=== PATIENT | male | born 1965 | race Caucasian/White ===

== ENCOUNTER 2018-07-21 01:30 | Observation (INO) | payer BC ==
[2018-07-21] VITALS (8 sets, daily range): BP systolic 143–178; BP diastolic 74–89; Ht 182.9 cm; Wt 122.7 kg
[~2018-07-21] VITALS: Ht 182.9 cm; Wt 122.7 kg
--- NOTE | ~2018-07-21 | HEMODYNAMI ---
PATIENT:BHASKAR RIZZO MEDICAL RECORD: [id number] : 65 LOCATION:[facility]# [id number] ADMISSION DATE: 07/21/18 Generatedon:07/21/201812:27 Patient name: BHASKAR RIZZO Patient #: [id number] SSN: : 1965 Date of study: 07/21/2018 Page: Of Hemodynamic Procedure Report Patient Data Patient Demographics Procedure consent was obtained First Name: BHASKAR Gender: Male Last Name: SO : 1965 Patient #: [id number] Age: 52 year(s) Race: Unknown Additional ID: [id number] Contact details [address]: [address] [place] [address] State: [place] City: [place] Zip code: [address] Past Medical History Allergies Allergen Reaction Date Comments Reported Codeine 07/21/2018 Admission Admission Data Admission Date: 07/21/2018 Admission Time: 3:20 Room #: [facility] Height (in.): 72 BSA: 2.42 (m2) Height (cm.): 182.88 BMI: 36.62 (kg/m2) Weight (lbs.): 270 Weight (kg.): 122.47 Lab Results Lab Result Date: 07/21/2018 Lab Result Time: 0:00 Biochemistry Name Units Result Min Max BUN mg/dl 24 --(----)-* 7 18 Creatinine mg/dl 1.3 --(---*)-- 0.6 1.3 CBC Name Units Result Min Max Hematocrit % 40.1 -*(----)-- 42 54 Hemoglobin g/dl 14.3 --(*---)-- 13.5 17.5 Procedure Procedure Types Cath Procedure Diagnostic Procedure [facility] w/Coronaries Sedation Charges Moderate Sedation up to 15 minutes PCI Procedure Coronary Stent Coronary Stent Initial Procedure Description Procedure Date Procedure Date: 07/21/2018 Procedure Start Time: 11:57 Procedure End Time: 12:23 Procedure Staff Name Function Ceferino Crouch MD Performing Physician Cassidy Sotelo RT Monitor Colleen John RT Scrub Kamilla Araujo RN Nurse Clarence Duke RN Production Welding Supervisor Procedure Data Cath Procedure Fluoroscopy Diagnostic fluoroscopy Total fluoroscopy Time: 5.9 time: 5.9 min min Diagnostic fluoroscopy Total fluoroscopy dose: dose: 1674 mGy 1674 mGy Contrast Material Contrast Material Type Amount (ml) Isovue 300 137 Entry Location Entry Primary Successful Side Size Upsize Upsize Entry Closure Succes sful Closure Location (Fr) 1 (Fr) 2 (Fr) Remarks Device Remarks Femoral Right 5 Fr 6 Fr Exoseal artery Short Estimated blood loss: 5 ml Diagnostic catheters Device Type Used For End Catheter Placement MULTIPACK JL 4.0 5Fr Left Coronary catheter Angiography MULTIPACK 3DRC 5Fr Multi-vessel catheter Angiography MULTIPACK Pigtail 5 Fr LV Angiography catheter MULTIPACK 3DRC 5Fr Multi-vessel catheter Angiography Procedure Complications No complications Procedure Medications Medication Administration Route Dosage Versed I.V. 2 mg Fentanyl I.V. 50 mcg 0.9% NaCl I.V. 100 ml/hr Oxygen etCO2 Nasal cannula 2 l/min Lidocaine 2% added to field 20 Heparin Flush Bag added to field 2 bags (1000units/500ml NS) Heparin Bolus I.V. 74773 units Versed I.V. 2 mg Fentanyl I.V. 50 mcg Plavix P.O. 600 mg Hemodynamics Rest BSA: 2.42 (m2) HGB: 14.3 (g/dl) O2 Consumption: Estimated: 278 (ml/min) O2 Consu mption indexed: Estimated:114.88 (ml/min/m) Heart Rate: 59 (bpm) Pressure Samples Time Site Value (mmHg) Purpose Heart Use Rate(bpm) 12:03 LV 159/0,48 Snapshot 53 Snapshots Pre Cath Intra NCS Post Cath Vital Signs Time Heart Resp SPO2 etCO2 NIBP (mmHg) Rhythm Pain Sedation Rate (ipm) (%) (mmHg) Status Level (bpm) 11:46:29 54 15 99 36.5 183/90(149) SB 0 (11) 10(A) , No pain 11:50:59 50 10 99 36 166/79(151) SB 0 (11) 10(A) , No pain 11:55:35 52 12 97 36 157/91(124) SB 0 (11) 9(A) , No pain 12:00:02 51 10 98 30 154/78(140) SB 0 (11) 9(A) , No pain 12:04:30 58 11 98 25.3 163/94(130) SB 0 (11) 9(A) , No pain 12:09:00 56 11 99 40 159/83(131) SB 0 (11) 10(A) , No pain 12:13:37 61 11 99 43.4 167/76(132) SB 0 (11) 9(A) , No pain 12:18:15 57 10 98 44 140/85(132) SB 0 (11) 10(A) , No pain 12:22:46 63 9 98 16.4 155/83(130) SB 0 (11) 10(A) , No pain Medications Time Medication Route Dose Verified Delivered Reason Notes Effectiveness by by 11:51:24 Versed I.V. 2 mg Ceferino Kamilla for sedation Miko Araujo RN 11:51:54 Fentanyl I.V. 50 Ceferino Kamilla for sedation mcg Miko Araujo RN 11:54:16 0.9% NaCl I.V. 100 Ceferino Kamilla used for ml/hr Miko Araujo efficiency analyst 11:54:24 Oxygen etCO2 2 Ceferino Kamilla used for Nasal l/min Miko Araujo procedure cannula RN 11:54:33 Lidocaine 2% added 20ml Ceferino Ceferino for local to vial Miko Crouch MD anesthetic field 11:54:40 Heparin Flush added 2 Ceferino Ceferino used for Bag to bags Miko Crouch MD procedure (1000units/500ml field NS) 12:10:36 Versed I.V. 2 mg Ceferino Kamilla for sedation verif ied Miko Araujo with Dr. AMARA Crouch 12:10:44 Fentanyl I.V. 50 Ceferino Kamilla for sedation mcg Miko Araujo RN 12:12:19 Heparin Bolus I.V. 86834 Ceferino Kamilla for units Miko Araujo anticoagulation RN 12:22:08 Plavix P.O. 600 Ceferino Kamilla for mg Miko Araujo antiplatelet RN therapy Procedure Log Time Note 10:34:56 Signed procedure consent form obtained from patient. 10:34:58 Diagnostic Cath status Elective 10:34:59 Time tracking: Regular hours (M-F 7:00 - 5:00) 10:35:04 Plan of Care:Hemodynamics will remain stable., Cardiac rhythm will remain stable., Comfort level will be maintained., Respiratory function will remain adequate., Patient/ family verbilizes understanding of procedure., Procedure tolerated without complication., Recovers from procedure without complications.. 10:36:30 H&P Date Dictated: 07/21/2018 ER History on chart.. 10:36:51 Patient allergic to Codeine 10:37:58 Lab Result : BUN 24 mg/dl 10:37:58 Lab Result : Creatinine 1.3 mg/dl 10:37:58 Lab Result : Hematocrit 40.1 % 10:37:58 Lab Result : Hemoglobin 14.3 g/dl 10:53:37 Patient Height : 72 inches 10:53:46 Patient Weight : 270 lbs 11:31:34 Clarence Duke RN sent for patient. Start room use. 11:40:29 Patient received from ED to CCL 1 Alert and oriented. Tansferred to table in Supine position. 11:40:31 Warm blankets applied, and radha hugger turned on for patient comfort. 11:40:31 Correct patient and procedure confirmed by team. 11:40:32 ECG and BP/O2 sat monitors applied to patient. 11:45:00 Vital chart was started 11:48:45 Baseline sample Acquired. 11:48:48 Rhythm: sinus rhythm 11:48:50 Full Disclosure recording started 11:48:50 Pre-procedure instructions explained to patient. 11:48:51 Pre-op teaching completed and patient verbalized understanding. 11:48:52 Family in waiting room. 11:48:53 Patient NPO since Midnight. 11:48:55 Is the patient allergic to Iodine/contrast media? No. 11:48:56 Was the patient premedicated? No 11:48:57 Is patient on blood thinner?No 11:48:59 Patient diabetic? Yes. 11:49:01 If diabetic: On Metformin? Yes 11:49:04 If on Metformin: Last Dose? 07/20/2018 11:49:09 Previous problem with sedation/anesthesia? No ? 11:49:12 Snore? Yes 11:49:14 Sleep apnea? No 11:49:14 Deviated septum? No 11:49:28 Opens mouth fully? Yes 11:49:29 Sticks out tongue? Yes 11:49:38 Airway obstruction? No ? 11:49:42 Dentures? No ? 11:49:46 Pre procedure: right dorsailis pedis pulse 2+ Normal; easily identifiable; not easily obliterated 11:49:48 Pre procedure: left dorsailis pedis pulse 2+ Normal; easily identifiable; not easily obliterated 11:49:52 Patient pain scale 0/10 ?. 11:49:58 IV patent on arrival in left forearm with 0.9% NaCl at O. 11:50:00 Lab results completed and on chart. 11:50:05 Right groin area was prepped with chlora-prep and draped in sterile fashion 11:50:06 Alarms reviewed by R. N. 11:50:06 Sharps counted by scrub and verified by R.N. 11:50:08 Physician arrived 11:50:09 --------ALL STOP TIME OUT------ 11:50:10 Final Timeout: patient, procedure, and site verified with staff and physician. All members of the team are in agreement. 11:50:12 Right groin site verified by team. 11:50:16 Maximum allowable Isovue 300 dose 300ml. Physician notified. (300ml for normal creatinines. For patients with creatinine of 1.7 or higher multiply weight(kg) x 5 divided by creatinine.) 11:50:21 Fire Safety Assessment: A--An alcohol-based skin anteseptic being used preoperatively., C--Open oxygen or nitrous oxide is being used., D--An ESU, laser, or fiber-optic light is being used. 11:50:24 Physical assessment completed. ASA score P 2 - A patient with mild systemic disease as per Ceferino Crouch MD. 11:50:30 Sedation plan: IV Moderate Sedation Medication:Versed, Fentanyl 11:50:33 Use device set Femoral Dx 11:50:35 ACIST Syringe (09188) opened to sterile field. 11:50:35 Bag Decanter (2002S) opened to sterile field. 11:50:35 Medline Cath Pack ([id number]) opened to sterile field. 11:50:36 DIAGNOSTIC WIRE .035 260cm J wire (774693) opened to sterile field. 11:50:37 ACIST Hand Control (78455) opened to sterile field. 11:50:38 ACIST Manifold (99072) opened to sterile field. 11:50:38 DIAGNOSTIC Multipack 5Fr catheter set (MP3687) opened to sterile field. 11:50:39 Tegaderm 4 x 4 (1626W) opened to sterile field. 11:50:41 SHEATH 5FR Spraggs (ZYV687) opened to sterile field. 11:51:24 Versed 2 mg I.V. was administered by Kamilla Araujo RN; for sedation; 11:51:54 Fentanyl 50 mcg I.V. was administered by Kamilla Araujo RN; for sedation; 11:54:16 0.9% NaCl 100 ml/hr I.V. was administered by Kamilla Araujo RN; used for procedure; 11:54:24 Oxygen 2 l/min etCO2 Nasal cannula was administered by Kamilla Araujo RN; used for procedure; 11:54:33 Lidocaine 2% 20ml vial added to field was administered by Ceferino Crouch MD; for local anesthetic; 11:54:40 Heparin Flush Bag (1000units/500ml NS) 2 bags added to field was administered by Ceferino Crouch MD; used for procedure; 11:56:40 Zero performed for pressure channel P1 11:56:50 Procedure started. 11:57:06 Local anesthetic to right femoral artery with Lidocaine 2% by Ceferino Crouch MD.INITIAL ACCESS ONLY 11:57:16 A 5 Fr sheath was inserted into the Right Femoral artery 11:58:55 A MULTIPACK JL 4.0 5Fr catheter was advanced over the wire and used for Left Coronary Angiography. 11:59:14 LCA angiography performed. 11:59:17 Injector settings: Ml/sec: 3, Volume: 6, 12:01:59 Catheter removed. 12:02:07 A MULTIPACK 3DRC 5Fr catheter was advanced over the wire and used for Multi-vessel Angiography. 12:02:16 RCA angiography performed. 12:02:20 Injector settings: Ml/sec: 3, Volume: 6, 12:02:42 Catheter removed. 12:02:49 A MULTIPACK Pigtail 5 Fr catheter was advanced over the wire and used for LV Angiography. 12:03:48 LV hemodynamics recorded. 12:03:49 LV gram done using SEPULVEDA 12:03:55 Injector settings: Ml/sec: 5, Volume: 15, 12:04:02 EF : 55 % 12:05:09 Catheter removed. 12:05:20 A MULTIPACK 3DRC 5Fr catheter was advanced over the wire and used for Multi-vessel Angiography. 12:05:31 Bilateral renal angiography performed. 12:08:27 Catheter removed. 12:08:52 TUBING High Pressure Extension Tubing (Miko) (CE3138D) opened to sterile field. 12:08:53 BMW 300cm [place] 2 J wire (7975011S) opened to sterile field. 12:08:55 SHEATH 6FR Spraggs (CHM899) opened to sterile field. 12:08:55 INFLATOR Merit BasixCompak (AG1552) opened to sterile field. 12:10:09 EXOSEAL 6Fr (EX600) opened to sterile field. 12:10:17 Proceeding to intervention. 12:10:24 Sheath upsized to a 6 Fr Short. 12:10:33 6 Fr xblad 3.5 guide catheter was inserted over the wire 12:10:36 Versed 2 mg I.V. was administered by Kamilla Araujo RN; for sedation; verified with Dr. Crouch 12:10:44 Fentanyl 50 mcg I.V. was administered by Kamilla Araujo RN; for sedation; 12:11:14 bmw wire advanced. 12:12:19 Heparin Bolus 64614 units I.V. was administered by Kamilla Araujo RN; for anticoagulation; 12:13:53 Wire advanced across lesion. 12:17:50 Place stent Inflation Number: 1 A ADRIANO OTW 3.0 x 22 stent ([id number]) was prepped and advanced across the Mid LAD. The stent was deployed at 12 [place] for 0:10 (min:sec). 12:20:30 Stent catheter was removed intact over wire. 12:20:30 Wire removed. 12:20:32 Guide catheter removed. 12:20:43 Sheath removed intact; hemostasis achieved with Exoseal to the Right Femoral artery. 12:20:45 Procedure ended.(Physican Out) 12:21:57 Fluoroscopy time 05.90 minutes. 12:22:04 Fluoroscopy dose: 1674 mGy 12:22:04 Flurop Dose total: 1674 12:22:08 Plavix 600 mg P.O. was administered by Kamilla Araujo RN; for antiplatelet therapy; 12:22:20 Contrast amount:Isovue 300 137ml. 12:22:21 Sharps counted by scrub and verified by R.N. 12:22:22 Insertion/operative site no bleeding no hematoma. 12:22:26 Post-op/insertion site Right Femoral artery dressed using a 4 x 4 and Tegaderm. 12:22:28 Post Procedure Pulses reassessed and unchanged 12:22:32 Post procedure rhythm: unchanged. 12:22:35 Estimated blood loss: 5 ml 12:22:37 Post procedure instruction explained to patient.Patient verbalizes understanding. 12:22:37 Patient needs reinforcement of post procedure teaching. 12:23:01 Procedure type changed to Cath procedure, Diagnostic procedure, LHC, LHC w/Coronaries, Sedation Charges, Moderate Sedation up to 15 minutes, PCI procedure, Coronary Stent, Coronary Stent Initial 12:23:02 Procedure and supply charges have been captured, reviewed, submitted and are correct. 12:23:07 Procedure Complication : No complications 12:23:09 Vital chart was stopped 12:23:11 See physician's report for complete and final results. 12:23:16 Report given to Pre/Post Procedure Room. 12:23:19 Patient transfered to Pre/Post Procedure Room with Stretcher. 12:23:21 Procedure ended. 12:23:21 Full Disclosure recording stopped 12:23:27 ACC-PCI Only Patient was given prescriptions, or instructed by Ceferino Crouch MD to start/continue the following medications upon discharge: Plavix 12:23:29 End room use (Document Last) Intervention Summary Intervention Notes Time ActionType Lesion and Equipment Action# Pressure Duration Attributes Used 12:17:50 Place stent Mid LAD ADRIANO OTW 3.0 1 12 00:10 x 22 stent ([id number]) Device Usage Item Name Manufacture Quantity Catalog Hospital Part Current Mini mal Lot# / Number Charge Number Stock Stock Serial# Code ACIST Syringe Acist 1 70092 683281 126025 033507 20 (87321) Medical Systems Inc Bag Decanter Microtek 1 992215 44896 213019 5 () Medical Inc. Medline Cath Medline 1 [id number] 170585 45468 181185 5 Pack ([id number]) DIAGNOSTIC St Cresencio 1 103003 660632 021825 766243 30 WIRE .035 260cm J wire (343708) ACIST Hand Acist 1 34026 889073 535835 676185 5 Control Medical (33202) Systems Inc ACIST Acist 1 59316 610948 581228 274464 5 Manifold Medical (42982) Systems Inc DIAGNOSTIC Cardinal 1 FJ7926 227620 21745 908714 30 Multipack 5Fr Health catheter set (JD9746) Tegaderm 4 x 3M 1 1626W 742261 741565 138142 5 4 (1626W) SHEATH 5FR Terumo 1 HJR506 127570 470668 402113 5 Spraggs (CQV657) MULTIPACK JL Cardinal 1 324729 5 4.0 5Fr Health catheter MULTIPACK Cardinal 1 599465 5 3DRC 5Fr Health catheter MULTIPACK Cardinal 1 280972 5 Pigtail 5 Fr Health catheter TUBING High Merit 1 [id number] 379070 52922 246193 10 Pressure Medical Extension Tubing (Crouch) (MV5150F) BMW 300cm De La Cruz 1 [id number] 163591 862030 540253 5 [place] 2 J Vascular wire (7839073G) SHEATH 6FR Terumo 1 IAU696 667742 151470 469798 40 Spraggs (WFF089) INFLATOR Merit 1 SU3116 734870 695958 424178 15 [facility] Medical BasixCompak (CD3456) EXOSEAL 6Fr Cardinal 1 EX600 203323 670864 590206 10 (EX600) Health ADRIANO OTW 3.0 Medtronic 1 [id number] 313228 3819336 151446 5 [id number] x 22 stent ([id number]) Signature Audit [place] Stage Time Signature Unsigned Intra-Procedure 07/21/2018 Cassidy Sotelo 12:27:05 PM RT(R) Signatures Monitor : Cassidy Sotelo RT Signature : Date : Time : [facility] [address] [place] [id number]
[~2018-07-21 01:30] MED LIST: GLUCOPHAGE500 MG PO; HYZAAR 100-25 T1 TAB PO; LANTUS SOL100 UNIT/1 SQ; LIPITOR20 MG PO; NYSTATIN ORAL SU5 ML PO; VITAMIN D50000 UNIT PO
[2018-07-21] MEDS ORDERED: COREG6.25 MG PO (01:43)
[2018-07-21] MEDS ORDERED: [UNRECOGNIZED DRUG - OTHER] PO (01:44)
[2018-07-21] MEDS ORDERED: PRAVACHOL20 MG PO ×2 (01:44→12:49)
[2018-07-21] MEDS ORDERED: ANASTROZOLE PO (01:45)
[2018-07-21] MEDS ORDERED: ANDROGEL5 GM (01:45)
[2018-07-21 02:33] LABS: BASOPHILS 0.1 % (0-2); EOSINOPHILS 2.6 % (0-7); HEMATOCRIT 40.1 % (42.0-54.0); HEMOGLOBIN 14.3 g/dL (13.5-17.5); IMMATURE GRANULOCYTES 0.2 % (0-5); LYMPHOCYTES 36.2 % (15-50); MCH 31.2 pg (26.0-34.0); MCHC 35.7 g/dL (31.0-37.0); MCV 87.4 fL (80.0-100.0); MEAN PLATELET VOLUME 10.1 fL (7.4-10.4); NEUTROPHILS 50.9 % (40-80); PLATELET COUNT 223 10x3/uL (130-400); RBC 4.59 10x6/uL (4.20-6.10); RDW 13.7 % (11.5-14.5); WBC 8.2 10x3/uL (4.8-10.8)
[2018-07-21 02:43] LABS: ALBUMIN 3.5 g/dL (3.4-5.0); ALKALINE PHOSPHATASE 90 U/L (46-116); ALT (SGPT) 41 U/L (10-68); BILIRUBIN - TOTAL 0.63 mg/dL (0.2-1.3); CALC OSMOLALITY 291 mosm/kg (275-300); CALCIUM 8.6 mg/dL (8.5-10.1); CARBON DIOXIDE 30.4 mmol/L (21.0-32.0); CHLORIDE - SERUM 107 mmol/L (98-107); CREATININE - SERUM 1.3 mg/dL (0.6-1.3); POTASSIUM - SERUM 4.1 mmol/L (3.5-5.1); PROTEIN - SERUM 6.8 g/dL (6.4-8.2); SODIUM 143 mmol/L (136-145); UREA NITROGEN 24 mg/dL (7-18); eGFR NON AFRICAN AMERICAN 61 mL/min (90-120)
--- NOTE | 2018-07-21 02:45 | NUR ---
PT RESTING ON BED. PT SPOUSE AT BEDSIDE. NO S/S OF ACUTE DISTRESS NOTED.
[2018-07-21 02:46] LABS: GLUCOSE 154 mg/dL (74-106)
[2018-07-21 02:54] LABS: CKMB 0.9 U/L (0.0-3.6); CREATINE KINASE 56 UL (21-232); TROPONIN-I 0.022 ng/mL (0.000-0.060)
--- NOTE | 2018-07-21 03:55 | NUR ---
PT SITTING ON BED. PT DENIES NEEDS AT THIS TIME.
--- NOTE | 2018-07-21 04:30 | NUR ---
PT RESTING ON BED, WATCHING TV. CALL LIGHT IN REACH.
--- NOTE | 2018-07-21 05:24 | NUR ---
PT RESTING ON BED, EYES CLOSED. NO S/S OF ACUTE DISTRESS NOTED AT THIS TIME.
--- NOTE | 2018-07-21 06:08 | NUR ---
PT RESTING ON BED, EYES CLOSED. NO S/S OF ACUTE DISTRESS NOTED.
--- NOTE | 2018-07-21 07:09 | NUR ---
PT AMBULATES TO BR WITH STEADY GAIT. P/W/D, EUPNEIC. C/O HEADACHE BUT DENIES PAIN OTHERWISE. SINUS TRACEY ON MONITOR.
[2018-07-21 09:27] LABS: CKMB 0.9 U/L (0.0-3.6); CREATINE KINASE 57 UL (21-232); TROPONIN-I < 0.017 ng/mL (0.000-0.060)
[2018-07-21 09:41] LABS: CHOLESTEROL, TOTAL 144 mg/dL (0-200); HDL CHOLESTEROL 29 mg/dL (32-96); LDL CHOLESTEROL 86 mg/dL (0-100); TRIGLYCERIDE 147 mg/dL (30-200)
[2018-07-21] MEDS ORDERED: PLAVIX75 MG PO (12:33)
[2018-07-21] MEDS ORDERED: BAYER CHEWABLE81 MG PO (12:34)
--- NOTE | 2018-07-21 12:35 | NUR ---
PT ARRIVED BY STRETCHER. PLACED ON MONITORS. FAMILY AT BEDSIDE.
[2018-07-21] MEDS ORDERED: CATAPRES0.1 MG PO (12:47)
--- NOTE | 2018-07-21 12:50 | NUR ---
RIGHT GROIN DRESSING C/D/I. NO S/S OF HEMATOMA NOTED. VSS.
[2018-07-21] MEDS ORDERED: NORVASC5 MG PO (12:54)
[2018-07-21] MEDS ORDERED: CYCLOBENZAPRINE10 MG PO (12:55)
[2018-07-21] MEDS ORDERED: ALEVE220 MG PO (12:56)
--- NOTE | 2018-07-21 13:20 | NUR ---
RIGHT GROIN DRESSING C/D/I. NO S/S OF HEMATOMA NOTED. VSS. FAMILY AT BEDSIDE. PT TOLERATING FOOD AND DRINK. DENIES NAUSEA.
--- NOTE | 2018-07-21 13:50 | NUR ---
PT RESTING COMFORTABLY. DENIES PAIN. VSS. RIGHT GROIN DRESSING C/D/I. NO S/S OF HEMATOMA NOTED. RIGHT PEDAL PULSE PALPBALE. FAMILY AT BEDSIDE. DENIES NAUSEA.
--- NOTE | 2018-07-21 14:30 | NUR ---
PT RESTING COMFORTABLY. VSS. RIGHT GROIN DRESSING C/D/I. NO NEEDS AT THIS TIME. NO S/S OF HEMATOMA. RIGHT PEDAL PULSE PALPABLE.
--- NOTE | 2018-07-21 14:59 | NUR ---
RIGHT GROIN DRESSING C/D/I. NO S/S OF HEMATOMA. VSS. CALL LIGHT WITHIN REACH. NO NEEDS AT THIS TIME.
--- NOTE | 2018-07-21 16:03 | NUR ---
RIGHT GROIN DRESSING C/D/I. NO S/S OF HEMATOMA NOTED. RIGHT PEDAL PULSE PALPABLE. LEFT AC PIV D/C'D WITH CATH TIP INTACT. PT TOLERATED WELL. DISCUSSED DISCHARGE INSTRUCTIONS WITH PT AND PT'S FAMILY. THEY VOICED UNDERSTANDING. PT GIVEN WORK EXCUSE PER REQUEST.
--- NOTE | 2018-07-21 16:05 | NUR ---
PT DRESSED SELF. AMBULATED TO RESTROOM WITHOUT DIFFICULTY. NO NEEDS AT THIS TIME. NO S/S OF DISTRESS.
--- NOTE | 2018-07-21 16:14 | NUR ---
PT TAKEN OUT BY VEHILCE. NO S/S OF DISTRESS NOTED. ALL BELONGINGS AND PAPERWORK IN HAND.
== END 2018-07-21 16:15 | disposition home or self-care (01) ==
LOC: D.ER 01:30 → OBSVTIME 03:20 → D.EDHOLD 03:20 → D.CLR 03:20
PROVIDERS: Family Medicine; ADMIT Internal Medicine Nephrology; ATTEND Internal Medicine Nephrology
DX: I25.110 Atherosclerotic heart disease of native coronary artery with unstable angina pectoris (principal); N17.9 Acute kidney failure, unspecified; E11.9 Type 2 diabetes mellitus without complications; I10 Essential (primary) hypertension; F10.10 Alcohol abuse, uncomplicated

== ENCOUNTER 2018-07-24 21:40 | Observation (INO) | payer BC ==
[~2018-07-24] VITALS: Ht 182.9 cm; Wt 122.8 kg
--- NOTE | ~2018-07-24 | HP ---
PATIENT: BHASKAR BALLESTEROS MEDICAL RECORD: [id number] ACCOUNT: [id number] LOCATION:[address] : 65 ADMISSION DATE: 07/24/18 PCP: TEDDY MALDONADO DO HISTORY AND PHYSICAL EXAMINATION ADMITTING DIAGNOSES: 1. Chest pain compatible with angina. 2. Coronary artery disease. 3. Recent percutaneous transluminal coronary angioplasty stent of left anterior descending. 4. Hypertension. 5. Noninsulin dependent diabetes. HISTORY OF PRESENT ILLNESS: Mr. Ballesteros presented Friday of this last week with chest discomfort, underwent cardiac catheterization by Dr. Crouch, revealing single vessel disease to the LAD, underwent successful PTCA stent of the LAD with an excellent result. No other lesions were identified. He initially did well. He had an episode of chest pain last night, went to the Emergency Room, was relieved with one sublingual nitro. He has had no recurrent pains overnight. His serial troponins are normal. PHYSICAL EXAMINATION: GENERAL APPEARANCE: Well-nourished, well-developed, appears stated age. Level of distress, comfortable. PSYCHIATRIC: Mental status, alert, normal affect. Orientation, oriented to time, place and person. EYES: Lids and conjunctiva, noninjected. No discharge, no pallor. ENT: Lips, teeth, gums, normal dentition. Oropharynx, no cyanosis, no pallor. NECK: Carotid arteries, bilateral normal upstroke, no bruits, no thrills. JUGULAR VEINS: No jugular venous pressure or distention. CERVICAL LYMPH NODES: Nontender, nonenlarged. THYROID: Not enlarged. Nontender. No nodules. LUNGS: Respiratory effort, unlabored. CHEST: Normal curvature. No thoracic deformity. No chest wall tenderness. Percussion, resonant. Auscultation, clear. No wheezes, no rales, no rhonchi. CARDIOVASCULAR: Precordial exam, nondisplaced. No heaves or pericardial thrills. Rate and rhythm, regular. Heart sounds, normal S1, normal S2. No S3, no gallop, no rub. Systolic murmur, not heard. Diastolic murmur, not heard. EXTREMITIES: No cyanosis, no edema. Peripheral pulses, full and equal in all extremities, except as noted. No bruits appreciated. ABDOMEN: Soft, nondistended. Normal aorta. No bruit. Nontender. No masses. Liver, nontender, no hepatomegaly. Spleen, nontender, no splenomegaly. MUSCULOSKELETAL: No joint tenderness. No joint swelling. No erythema. NEUROLOGICAL: Normal gait, normal strength, normal tone. SKIN: Warm and dry. OVERALL IMPRESSION: Chest pain compatible with angina, normal EKG, normal troponins, resolved with one sublingual nitro at this time. I do not feel that he needs repeat cardiac catheterization. We will give him sublingual nitro to have at home. No other cardiac workup or treatment will be necessary at this time. TRANSINT:[id number] Voice Confirmation ID: [id number] DOCUMENT ID: [id number] HISTORY AND PHYSICAL [id number] BHASKAR BALLESTEROS JEFFREY MD CC: [id number] DICTATION DATE: 07/25/18 1230 MORTGAGE CONSULTANT: 07/25/18 1348 DIS IN 07/25/18 [facility] [address] [place] [address]
--- NOTE | ~2018-07-24 | DS ---
PATIENT:BHASKAR BALLESTEROS :65 MEDICAL RECORD: [id number] DISCHARGE SUMMARY ADMISSION DATE: 07/24/18 DISCHARGE DATE: 07/25/18 DIAGNOSES: 1. Angina. 2. Coronary artery disease. 3. Previous percutaneous transluminal coronary angioplasty and stent to the left anterior descending. 4. Hypertension. 5. Eer-jkyplug-efebzsgvd diabetes. BRIEF HISTORY: Mr. Ballesteros had an episode of chest pain that was relieved with one sublingual nitro, was admitted for observation overnight had no further episodes of chest pain. Serial troponins were normal. EKG was normal. Discharged home with a prescription for sublingual nitro to use in the future p.r.n. TRANSINT:[id number] Voice Confirmation ID: [id number] DOCUMENT ID: [id number] VÍCTOR TOLLIVER MD CC: [id number] DICTATION DATE: 07/25/18 1230 CARGO OPERATIONS AGENT: 07/26/18 0121 DIS IN 07/25/18 [facility] [address] [id number]
[~2018-07-24 21:40] MED LIST changes: +ALEVE220 MG PO; +ANASTROZOLE PO; +ANDROGEL5 GM; +BAYER CHEWABLE81 MG PO; +CATAPRES0.1 MG PO; +COREG6.25 MG PO; +CYCLOBENZAPRINE10 MG PO; +NORVASC5 MG PO; +PLAVIX75 MG PO; +PRAVACHOL20 MG PO; +[UNRECOGNIZED DRUG - OTHER] PO
[2018-07-24 22:05] VITALS: BP 192/91
[2018-07-24 22:22] LABS: BASOPHILS 0.2 % (0-2); EOSINOPHILS 3.1 % (0-7); HEMATOCRIT 40.7 % (42.0-54.0); HEMOGLOBIN 14.8 g/dL (13.5-17.5); IMMATURE GRANULOCYTES 0.4 % (0-5); MCH 31.4 pg (26.0-34.0); MCHC 36.4 g/dL (31.0-37.0); MCV 86.4 fL (80.0-100.0); MEAN PLATELET VOLUME 9.9 fL (7.4-10.4); MONOCYTES 9.7 % (2-11); NEUTROPHILS 54.6 % (40-80); PLATELET COUNT 224 10x3/uL (130-400); RBC 4.71 10x6/uL (4.20-6.10); RDW 13.4 % (11.5-14.5); WBC 8.3 10x3/uL (4.8-10.8)
[2018-07-24 22:33] LABS: APTT 35.4 SECONDS (22.8-39.4); INR 0.98 (0.85-1.17); PROTIME 12.5 SECONDS (11.6-15.0)
[2018-07-24 22:35] VITALS: BP 163/76
[2018-07-24 22:38] LABS: ALBUMIN 3.7 g/dL (3.4-5.0); ALKALINE PHOSPHATASE 101 U/L (46-116); ALT (SGPT) 54 U/L (10-68); BILIRUBIN - TOTAL 0.76 mg/dL (0.2-1.3); CALC OSMOLALITY 282 mosm/kg (275-300); CALCIUM 8.9 mg/dL (8.5-10.1); CARBON DIOXIDE 28.1 mmol/L (21.0-32.0); CHLORIDE - SERUM 102 mmol/L (98-107); CREATININE - SERUM 1.2 mg/dL (0.6-1.3); GLUCOSE 198 mg/dL (74-106); POTASSIUM - SERUM 3.8 mmol/L (3.5-5.1); PROTEIN - SERUM 7.3 g/dL (6.4-8.2); SODIUM 137 mmol/L (136-145); UREA NITROGEN 22 mg/dL (7-18); eGFR NON AFRICAN AMERICAN 67 mL/min (90-120)
[2018-07-24 22:49] LABS: CKMB 0.6 U/L (0.0-3.6); CREATINE KINASE 44 UL (21-232); MAGNESIUM - SERUM 1.7 mg/dL (1.8-2.4); TROPONIN-I 0.058 ng/mL (0.000-0.060)
--- NOTE | 2018-07-24 22:49 | NUR ---
FIRST NITRO GIVEN AT 2228 PAIN 2/10 SECOND NITRO GIVEN AT 8 PAIN 1/10 THIRD NITRO GIVEN AT 4 PAIN 1/10 PT DENIES NEEDS, CALL LIGHT WITHIN REACH, AT BEDSIDE.
[2018-07-24 23:02] VITALS: BP 135/71
[2018-07-24 23:55] VITALS: BP 151/76
[2018-07-25 00:31] VITALS: BP 130/72
--- NOTE | 2018-07-25 00:38 | NUR ---
PT REPORT CALLED TO AMOS, FLOOR NURSE AT THIS TIME.
--- NOTE | 2018-07-25 01:07 | NUR ---
PT ARRIVED TO FLOOR BY WHEELCHAIR, NO S/S OF DISTRESS NOTED. PT STATES HE IS A DIABETIC HOWEVER HE STATES HE MANAGES IT WITHOUT INSULIN. TELEMETRY ESTABLISHED. BED IN LOW POSITION. DENIES FURTHER NEEDS AT THIS TIME. REPORT TAKEN FROM BONNY GOOD RN. CALL LIGHT IN REACH. WILL CTM.
[2018-07-25 03:43] VITALS: BP 130/72; Ht 182.9 cm; Wt 122.8 kg
[2018-07-25 05:28] LABS: CKMB 0.7 U/L (0.0-3.6); CREATINE KINASE 36 UL (21-232); TROPONIN-I 0.046 ng/mL (0.000-0.060)
--- NOTE | 2018-07-25 07:21 | NUR ---
PT ASLEEP, DID NOT WAKE I ENTERED DID NOT FURTHER DISTURB AT THIS TIME. CL IN REACH. SRX2.
[2018-07-25 08:14] VITALS: BP 177/86
--- NOTE | 2018-07-25 10:12 | NUR ---
I have reviewed this patient and I concur with the Shift Assessment completed by the Licensed Practical Nurse today this shift.
--- NOTE | 2018-07-25 10:44 | NUR ---
02 SAT 87% TA AT REST.
--- NOTE | 2018-07-25 11:02 | NUR ---
PT AMBULATED OUT WITH . NO COMPLAINTS OR CONCENRS VOICED.
--- NOTE | 2018-07-25 11:32 | NUR ---
PT LEFT BAG FULL OF MEDICATIONS IN HIS ROOM. ATTEMPTED TO CALL HIM BUT THE NUMBER WAS OUT OF SERVICE. WILL ATEMPT TO CALL PHARAMCY AT [facility] AND LET SOMEONE KNOW IT'S HERE.
--- NOTE | 2018-07-27 08:15 | MORECARE ---
CASE MANAGEMENT DISCHARGE SUMMARY PATIENT: BHASKAR RIZZO UNIT: [id number] ADM DATE: 07/24/18 AGE: 53 : 65 SEX: M ROOM/BED: D.2123 AUTHOR: KAYLA WONG PHYSICIAN: REFERRING PHYSICIAN: VÍCTOR TOLLIVER MD DATE OF SERVICE: 07/27/18 Discharge Plan Patient Name: BHASKAR RIZZO [facility] 1965 Planned Disposition: Home Anticipated Discharge Date: 07/25/18 Discharge Date: 07/25/2018 Expected LOS: 1 Initial Reviewer: [email or web address] Initial Review Date: 07/27/2018 Generated: 07/27/18 9:15 am Patient Name: BHASKAR RIZZO Page [id number] at 0815 All edits/amendments must be made on the electronic document DICTATION DATE: 07/27/18813 ENVELOPE SEALER OPERATOR: ALESSANDRA 07/27/18813 RPT#: [id number] DC DATE:07/25/18 STATUS: DIS IN [facility] [address] [place] [address] END OF REPORT
== END 2018-07-25 11:03 | disposition home or self-care (01) ==
LOC: D.ER 21:40 → D.M2 23:13 → OBSVTIME 23:13 → D.M2 07-25 11:03
PROVIDERS: Emergency Medicine; ADMIT Internal Medicine Interventional Cardiology; ATTEND Internal Medicine Interventional Cardiology
DX: I25.119 Atherosclerotic heart disease of native coronary artery with unspecified angina pectoris (principal); I10 Essential (primary) hypertension; E11.9 Type 2 diabetes mellitus without complications